=== PATIENT | female | born 1990 | race Caucasian/White ===

== ENCOUNTER 2016-11-27 20:19 | Observation (INO) | payer BC ==
[~2016-11-27] VITALS: Ht 165.1 cm; Wt 84.4 kg
[2016-11-27 21:11] LABS: HEMOGLOBIN 12.9 gm/dl (12.3-15.3); RED BLOOD COUNT 4.43 M/UL (4.00-5.10); WHITE BLOOD COUNT 10.1 K/UL (4.5-11.0)
[2016-11-27 21:39] LABS: BUN/CREATININE RATIO 10 (0-10)
== END 2016-11-28 10:08 | disposition home or self-care (01) ==
LOC: GENOP 20:19 → OB 23:54
PROVIDERS: Obstetrics & Gynecology; ADMIT Obstetrics & Gynecology
DX: O98.513 Other viral diseases complicating pregnancy, third trimester (principal); A08.4 Viral intestinal infection, unspecified; O99.89 Other specified diseases and conditions complicating pregnancy, childbirth and the puerperium; E86.0 Dehydration; Z3A.31 31 weeks gestation of pregnancy; Z90.49 Acquired absence of other specified parts of digestive tract; Z79.899 Other long term (current) drug therapy
CPT/HCPCS: 36415; 80053; 81001; 82009; 82150; 82731; 83690; 85025; 96360; 96361; 96367; 96374; C9113; G0378; J2405; J2550; J7050; J7120

== ENCOUNTER 2016-12-05 16:16 | Emergency (ER) | payer BC | END 2016-12-05 17:10 | disposition home or self-care (01) | LOC: ER1 16:16 | DX: O99.613 Diseases of the digestive system complicating pregnancy, third trimester (principal); K02.9 Dental caries, unspecified; Z3A.33 33 weeks gestation of pregnancy | CPT/HCPCS: 99282 ==

== ENCOUNTER → 2017-01-08 | Outpatient (CLI) | payer BC | LOC: KOH-I 01-01 10:15 | DX: M79.604 Pain in right leg (principal) | CPT/HCPCS: 93971 ==